=== PATIENT | male | born 2000 | race Caucasian/White ===

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

== ENCOUNTER → 2021-04-09 | Outpatient (CLI) | payer MEDICAID ==
--- NOTE | 2021-04-09 10:44 | MR ---
EXAMINATION TYPE: MR brain wo/w con DATE OF EXAM: 04/09/2021 COMPARISON: None HISTORY: epilepsy TECHNIQUE: Multiplanar, multisequence images of the brain and brainstem is performed without and with IV contras t, utilizing 8 mL intravenous Gadavist . FINDINGS: Diffusion weighted images demonstrate no evidence of a recent infarct or other diffusion ab normality. There is no extra-axial fluid collection or significant white matter signal abnormality. The ventricular system and cisternal spaces are normal in size and appearance. The brain volume is age appropriate. Midline structures demonstrate normal morphology. The craniocervical junction appears within normal limits. Post contrast images demonstrate no abnormal enhancement. The dural venous sinuses appear pa tent. The visualized sinuses are remarkable for inflammatory change in the right maxillary sinus, eth moid air cells and the globes are intact. IMPRESSION: Unremarkable brain MRI. Sinus disease.
== END | disposition home or self-care (01) ==
LOC: RADMRIMAIN 08:55
PROVIDERS: ATTEND Psychiatry & Neurology Neurology
DX: G40.909 Epilepsy, unspecified, not intractable, without status epilepticus (principal); J32.9 Chronic sinusitis, unspecified
CPT/HCPCS: 70553; A9585

== ENCOUNTER → 2022-05-02 | Outpatient (CLI) | payer MEDICAID ==
--- NOTE | 2022-05-02 16:05 | US ---
EXAMINATION TYPE: US scrotum with doppler. DATE OF EXAM: 05/02/2022 COMPARISON: NONE CLINICAL HISTORY: 22-year-old male [id number] LEFT TESTICULAR PAIN. Left testicular pain, but patient st ates the pain has subsided. 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 Right prosthesis surgery 3-4 years ago. TECHNIQUE: Grayscale and color Doppler Duplex imaging performed of the scrotum. FINDINGS: EXAM MEASUREMENTS: TESTICLES: Right Testicle Prosthesis: 4.3 x 3.0 x 2.9 cm for a volume of 19.6 mL. Left Testicle: 5.5 x 3.1 x 2.4 cm for a volume of 21.4 mL Doppler performed to assess for testicular vascularity; Color flow and waveforms are seen within the left testicle. Left testicle shows normal homogeneous appearance. No hyperemia.. There is no eviden ce of testicular torsion. EPIDIDYMIS HEAD: Right Epididymis: Left Epididymis: 0.8 x 1.0 x 1.0 cm. Anechoic area seen within: 0.4 x 0.4 x 0.3 cm. Presence of hydroceles: Yes [id number] on the left: 3.2 x 0.9 x 0.8 cm. Presence of varicoceles: Vessels appear slightly prominent on the left: 0.22 cm but not excessively dilated. No augmentation with Valsalva. IMPRESSION: 1. Right testicular prosthesis. 2. The left testicle appears normal. No sonographic evidence for testicular torsion. 3. Tiny 4 mm epididymal head cyst on the left. 4. Small to moderate nonspecific hydrocele on the left. The left-sided vessels are slightly prominent but do not meet criteria for varicocele at this time.
== END | disposition home or self-care (01) ==
LOC: RADUSWWP 11:58
PROVIDERS: ATTEND Family Medicine
DX: N43.3 Hydrocele, unspecified (principal); N50.3 Cyst of epididymis; N50.812 Left testicular pain
CPT/HCPCS: 76870; 93975; 93976